=== PATIENT | male | born 1980 | race African-American/Black ===

== ENCOUNTER 2022-01-14 22:06 | Emergency (ER) | payer OTHER, SELFPAY ==
--- OUTSIDE RECORDS SUMMARY | 2022-01-14 22:09 | XMS REPORT | Continuity of Care Document ---
:1980 Author Organization [facility] t Address [address] [place] [address] Care Team Providers Name Role Phone Guerrero Attending Clinician Unavailable Problems This patient has no known problems. Allergies, Adverse Reactions, Alerts This patient has no known allergies or adverse reactions. Medications This patient has no known medications. Procedures This patient has no known procedures. Encounters Start End Encounter Admission Attending Care Care Encounter Source Date/Time Date/Time Type Type Clinicians Facility Department ID 2021-08-27 Outpatient Guerrero, STLMLC [facility] [id number] Common 13:20:57 [place]nee [id number] [facility] 2021-08-27 Outpatient Guerrero, STLC [facility] [id number] Common 13:19:32 Avnee [id number] [facility] 2021-08-27 Outpatient Guerrero, STLC [facility] [id number] Common 13:14:49 Avnee [id number] [facility] 2021-08-27 Out[facility] Guerrero, [facility] [id number] Common 13:09:53 Avnee [id number] [facility] 2021-08-27 Outpatient Guerrero, STLC [facility] [id number] Common 13:06:50 Avnee [id number] [facility] 2021-08-27 Outpatient Guerrero, STLC [facility] [id number] Common 13:06:13 Avnee [id number] [facility] 2021-05-22 2021-05-22 Outpatient STLMLC ST[facility] [id number] Common 00:00:00 00:00:00 [facility] 2021-04-23 2021-04-23 Outpatient STLMLC STL[facility]C [id number] Common 00:00:00 00:00:00 [facility] 2021-02-24 2021-02-24 Outpatient STLMLC STLMLC [id number] Common 00:00:00 00:00:00 [facility] 2021-01-29 2021-01-29 Outpatient STLMLC STLMLC [id number] Common 00:00:00 00:00:00 [facility] 2021-01-15 2021-01-15 Outpatient STLMLC STLMLC [id number] Common 00:00:00 00:00:00 [facility] 2020-12-20 2020-12-20 Outpatient STLMLC STLMLC [id number] Common 00:00:00 00:00:00 [facility] Results This patient has no known results.
== END 2022-01-14 23:08 | disposition left against medical advice (07) ==
LOC: ER 22:06
DX: Z02.9 Encounter for administrative examinations, unspecified (principal)

== ENCOUNTER 2022-07-02 15:07 | Inpatient (IN) | payer SELFPAY ==
--- NOTE | 2022-07-02 15:37 | RAD REPORT ---
EXAM DESCRIPTION: CT - Ct Stroke Brain Wo Cont - 07/02/2022 3:30 pm CLINICAL HISTORY: Numbness/tingling Headache, drowsiness, CVA symptomology. COMPARISON: No comparisons TECHNIQUE: All CT scans are performed using dose optimization technique as appropriate and may inclu de automated exposure control or mA/KV adjustment according to patient size. FINDINGS: No intracranial hemorrhage, hydrocephalus or extra-axial fluid collection.No areas of brai n edema or evidence of midline shift. The paranasal sinuses and mastoids are clear. The calvarium is intact. IMPRESSION: No acute intracranial abnormality. If there is continued clinical concern for CVA, MR imaging of the brain would be recommended. The findings were discussed with doctor Posada in the emergency room on 07/02/2022 at 3:30 p.m. by telephone.
[2022-07-02] MEDS ORDERED: ASPIRIN 81 MG CHEWABLE TABLET ONE (15:47)
[2022-07-02] MEDS ORDERED: FOLIC ACID 5 MG/ML VIAL ONE (15:48)
[2022-07-02] MEDS ORDERED: NA CHLORIDE 0.9% 1,000 ML ONE (15:49)
[2022-07-02] MEDS ORDERED: TENECTEPLASE 50 MG/10 ML VIAL IV ONE (15:58)
--- NOTE | 2022-07-02 16:00 | RAD REPORT ---
EXAM DESCRIPTION: RAD - Chest Single View - 07/02/2022 3:50 pm CLINICAL HISTORY: CHEST PAIN Chest pain. COMPARISON: No comparisons FINDINGS: Portable technique limits examination quality. There is a vague small opacity in the left lung base which may represent infiltrate/pneumonia. The ri ght lung is clear. The heart is normal in size. No displaced fractures. IMPRESSION: Small opacity in the left lung base likely represents developing pneumonia.
[2022-07-02 16:02] LABS: Hematocrit 40.6 % (39.6-49.0); Lymphocytes % 19.4 % (15.3-44.8); MCV 92.2 fL (80-100); MPV 8.1 fL (7.6-11.3)
--- OUTSIDE RECORDS SUMMARY | 2022-07-02 16:04 | XMS REPORT | Continuity of Care Document ---
:1980 Author Organization [facility] t Address [address] [place] [address] Care Team Providers Name Role Phone PCP, PATIENT DOES NOT HAVE A Primary Care Physician UnavailFabiola Navarro Attending Clinician Unavailable WILLIAM GARCIA Attending Clinician Unavailable William Hernandes Attending Clinician Payers Payer Name Policy Type Policy Number Effective Date Expiration Date Diamond ellsworth [employer] [id number] 2022 00:00:00 [employer] C1 [id number] 2019 [facility] 00:00:00 - [facility] Problems Condition Condition Condition Status Onset Resolution Last Treating Co mments Source Name Details Category Date Date Treatment Clinician Date [id number] Epigastric Problem Active Com mon pain [facility] Anxiety Anxiety Problem Active [facility] [id number] Sterilizat Problem Active Co mmon ion [facility] education [facility] [id number] Gastroesop Problem Active Co mmon [facility] reflux - [facility] disease [facility] esophagiti [facility] [place] Esophageal Esophageal Problem Active C ommon reflux reflux [facility] [id number] S/P Problem Active Common vasectomy [facility] Allergies, Adverse Reactions, Alerts Allergy Allergy Status Severity Reaction(s) Onset Inactive Treating Comm ents Source Name Type Date Date Clinician NO KNOWN Drug Active Univers ALLERGIE Class ity of S [facility] Social History Social Habit Start Date Stop Date Quantity Comments Source History of Tobacco [facility] Use [facility] Sex Assigned At [facility] Exposure to 2022-01-04 2022-01-14 Not sure [facility] SARS-CoV-2 (event) 00:00:00 23:18:00 [facility] [place] [facility] Smoking Status Start Date Stop Date Source Unknown if ever smoked [facility] Never Smoker [facility] Medications Ordered Filled Start Stop Current Ordering Indication Dosage Frequency Signature Comments Components Source Medication Medication Date Date Medication? Clinician (SIG) Name Name ondansetron No 4mg 4 mg, Slow Univers (ZOFRAN 01-15 IV Push, ity of (PF)) 06:00: 04:53 ONCE, 1 [place] injection 4 00 :00 dose, On Medi rosi mg [facility] 01/15/22 at 0100, MILENA morpHINE (4 No 4mg 4 mg, Slow Univers mg/mL) 01-15 IV Push, ity of injection 4 06:00: 04:54 [place] :[place] dose, On Medical [place] [facility] 01/15/22 at 0100, STAT ketorolac 2021- No 30mg 30 mg, Unive rs (TORADOL) 01-15 Slow IV ity of injection 06:00: 04:54 Push, [place] 30 mg 00 :00 ONCE, 1 Medical dose, On Branch [facility] 01/15/22 at 0100, MILENA HYDROcodone 2021- No 4647 1{tbl} Take 1 U nivers -acetaminop 01-15 tablet by it y of hen 10-325 00:00: 04:59 mouth [place] mg tablet 00 :00 every 6 Medical (six) Branch hours as needed for Pain (scale 7-10) for up to 7 days. Indication s: acute pain Acetaminoph Acetaminoph 2020- No 1{table QID Acetaminop en-Codeine en-Codeine 02-24 0729 t_as_ne hen-Codein #3 300-30 #3 300-30 00:00: 00:00 eded} e #3 MG MG 00 :00 300-30 MG Omeprazole Omeprazole 0 No QD Omeprazole 20 MG 20 MG 6-17 20 MG 00:00: 00 Omeprazole Omeprazole 2020-0 No QD Omeprazole 20 MG 20 MG 6-17 20 MG 00:00: 00 Omeprazole Omeprazole 2020-0 No QD Omeprazole 20 MG 20 MG 6-17 20 MG 00:00: 00 Omeprazole Omeprazole 2020-0 No QD Omeprazole 20 MG 20 MG 6-17 20 MG 00:00: 00 Omeprazole Omeprazole 2020-0 No QD Omeprazole 20 MG 20 MG 6-17 20 MG 00:00: 00 Vital Signs Vital Name Observation Time Observation Value Comments Source Systolic blood 2022-01-15 06:27:00 135 mm[Hg] Univer sity of [facility] Diastolic blood 2022-01-15 06:27:00 93 mm[Hg] Unive [facility] Heart rate 2022-01-15 06:27:00 68 /min [facility] Respiratory rate 2022-01-15 06:27:00 16 /min [facility] Oxygen saturation in 2022-01-15 06:27:00 99 /min [facility] Arterial blood by [facility] Pulse oximetry [place] Body temperature 2022-01-15 04:22:00 36.56 [place] [facility] Body height 2022-01-15 04:22:00 180.3 cm [facility] Body weight 2022-01-15 04:22:00 97.523 kg [facility] BMI 2022-01-15 04:22:00 29.99 kg/m2 [facility] height 2021-02-24 14:30:00 72 [in_i] [facility] weight 2021-02-24 14:30:00 216 [lb_av] [facility] temperature 2021-02-24 14:30:00 98.3 [degF] [facility] bmi 2021-02-24 14:30:00 29.29 kg/m2 [facility] - [facility] oximetry 2021-02-24 14:30:00 98 % Common S [facility] - [facility] blood pressure 2021-02-24 14:30:00 139 mm[Hg] [facility] - systolic [facility] blood pressure 2021-02-24 14:30:00 89 mm[Hg] [facility] - diastolic [facility] height 2021-01-29 11:30:00 72 [in_i] Common S pirit - [facility] weight 2021-01-29 11:30:00 216.2 [lb_av] Common [facility] temperature 2021-01-29 11:30:00 98.7 [degF] [facility] bmi 2021-01-29 11:30:00 29.32 kg/m2 [facility] oximetry 2021-01-29 11:30:00 99 % Common S pirit [facility] blood pressure 2021-01-29 11:30:00 142 mm[Hg] Common [facility] - systolic [facility] blood pressure 2021-01-29 11:30:00 85 mm[Hg] Common [facility] - diastolic [facility] height 2021-01-15 16:00:00 72 [in_i] [facility] weight 2021-01-15 16:00:00 214.4 [lb_av] Common [facility] temperature 2021-01-15 16:00:00 97.3 [degF] Common S pirit [facility] bmi 2021-01-15 16:00:00 29.07 kg/m2 [facility] 2021-01-15 16:00:00 97 % [facility] respiratory rate 2021-01-15 16:00:00 16 /min Comm on [facility] blood pressure 2021-01-15 16:00:00 139 mm[Hg] [facility] - systolic [facility] blood pressure 2021-01-15 16:00:00 76 mm[Hg] Common [facility] - diastolic [facility] height 2020-12-20 11:00:00 72 [in_i] Common pirit - [facility] weight 2020-12-20 11:00:00 211.6 [lb_av] [facility] temperature 2020-12-20 11:00:00 97.2 [degF] Common S pirit - [facility] bmi 2020-12-20 11:00:00 28.69 kg/m2 Common S pirit [facility] oximetry 2020-12-20 11:00:00 97 % [facility] respiratory rate 2020-12-20 11:00:00 16 /min Comm on [facility] blood pressure 2020-12-20 11:00:00 133 mm[Hg] Common [facility] - systolic [facility] blood pressure 2020-12-20 11:00:00 87 mm[Hg] [facility] diastolic [facility] Procedures Procedure Date / Time Performed Performing Clinician Sour e NOTICE OF PRIVACY 2022-01-15 04:20:44 [facility] CONSENT/REFUSAL FOR 2022-01-15 04:15:45 [facility], [facility] AND Name Medical Branch TREATMENT Encounters Start End Encounter Admission Attending Care Care Encounter Source Date/Time Date/Time Type Type Clinicians Facility Department ID 2022-02-25 Outpatient GuerreroJAMIE camarena [facility] [id number] Common 14:01:02 Avnee [facility] 2021-08-27 Outpatient JAMIE Guerrero [facility] [id number] Common 13:20:57 Avnee [facility] 2021-08-27 Outpatient JAMIE Guerrero [facility] [id number] Common 13:19:32 Avnee [id number] [facility] 2021-08-27 Outpatient JAMIE Guerrero [facility] [id number] Common 13:14:49 Avnee [id number] [facility] 2021-08-27 Outpatient Guerrero, STLMLC STLMLC [id number] Common 13:09:53 Avnee [id number] [facility] 2021-08-27 Outpatient Guerrero, STLMLC STLMLC [id number] Common 13:06:50 Avnee [id number] [facility] 2021-08-27 Outpatient Guerrero, STLMLC STLMLC [id number] Common 13:06:13 Avnee [id number] [facility] 2022-01-14 2022-01-15 [id number] Univers 23:18:00 01:54:00 WILLIAM herrera [facility] 2022-01-14 2022-01-15 [facility] [id number] Univers 23:18:00 01:54:00 [place] [id number] [facility] [id number] [facility] [id number] [place] [address] Branch 2021-05-22 2021-05-22 OL DIG E/M STLMLC STLMLC [id number] Common 00:00:00 00:00:00 SVC 5-10 Spiri t MIN [facility] 2021-04-23 2021-04-23 OL DIG E/M STLMLC STLMLC [id number] Common 00:00:00 00:00:00 SVC 5-10 Spiri t MIN [facility] 2021-02-24 2021-02-24 (PROC) STLMLC STLMLC [id number] Co mmon 00:00:00 00:00:00 Procedure Spir it - [facility] 2021-01-29 2021-01-29 OFFICE STLMLC STLMLC [id number] Co mmon 00:00:00 00:00:00 VISIT NEW Spir it PT LEVEL 2 - [facility] 2021-01-15 2021-01-15 PREV VISIT STLMLC STLMLC [id number] Common 00:00:00 00:00:00 EST AGE Spirit 40-64 - [facility] 2020-12-20 2020-12-20 OFFICE [facility] [id number] Co mmon 00:00:00 00:00:00 VISIT [facility] PT LEVEL 3 - [facility] Results This patient has no known results.
[2022-07-02 16:05] LABS: Protime INR 1.1
[2022-07-02 16:15] LABS: Potassium 3.6 mmol/L (3.5-5.1); Troponin High Sensitivity 4.4 pg/mL (<58.9)
--- NOTE | 2022-07-02 16:44 | EDPHYS ---
Physician Documentation [facility] Name: Lisandro Cho Age: 41 yrs Sex: Male : 1980 Arrival Date: 07/02/2022 Time: 15:13 Bed 19 Private MD: ED Physician Patel Posada HPI: 07/02 15:42 This 41 yrs old Black Male presents to ER via Ambulatory with complaints of Numbness Of carlos manuel Face, Chest Pain > 30 y/o, Dizziness. 15:42 The patient's problem is reported as paresthesias, in left side of face. Onset: The carlos manuel symptoms/episode began/occurred just prior to arrival. Duration: The episode is continuous. Context: the episode(s) was witnessed, by family, occurred at work. The symptoms are alleviated by nothing. The symptoms are aggravated by nothing. Associated signs and symptoms: The patient has no apparent associated signs or symptoms. Severity of symptoms: At their worst the symptoms were mild in the emergency department the symptoms are unchanged. Patient's baseline: Neuro: alert and fully oriented. The patient has not experienced similar symptoms in the past. Historical: - Allergies: 15:15 No Known Allergies; ld1 - Home Meds: 15:15 None [Active]; ld1 - PMHx: 15:15 None; ld1 - PSHx: 15:15 None; ld1 - Immunization history:: Adult Immunizations up to date, Client reports having NOT received the Covid vaccine. - Social history:: Smoking status: Patient denies any tobacco usage or history of. Patient/guardian denies using alcohol. - Family history:: not pertinent. ROS: 15:42 Constitutional: Negative for fever, chills, and weight loss, Eyes: Negative for injury, carlos manuel pain, redness, and discharge, ENT: Negative for injury, pain, and discharge, Neck: Negative for injury, pain, and swelling, Cardiovascular: Negative for chest pain, palpitations, and edema, Respiratory: Negative for shortness of breath, cough, wheezing, and pleuritic chest pain, Abdomen/GI: Negative for abdominal pain, nausea, vomiting, diarrhea, and constipation, Back: Negative for injury and pain, : Negative for injury, bleeding, discharge, and swelling, MS/Extremity: Negative for injury and deformity, Skin: Negative for injury, rash, and discoloration, Psych: Negative for depression, anxiety, suicide ideation, homicidal ideation, and hallucinations, Allergy/Immunology: Negative for hives, rash, and allergies, Endocrine: Negative for neck swelling, polydipsia, polyuria, polyphagia, and marked weight changes, Hematologic/Lymphatic: Negative for swollen nodes, abnormal bleeding, and unusual bruising. 15:42 Neuro: Positive for numbness, of the forehead, left ear, left cheek, left sabianist and left jaw. Exam: 15:42 Radiologist reports: NEGATIVE carlos manuel 15:42 Constitutional: This is a well developed, well nourished patient who is awake, alert, and in no acute distress. Eyes: Pupils equal round and reactive to light, extra-ocular motions intact. Lids and lashes normal. Conjunctiva and sclera are non-icteric and not injected. Cornea within normal limits. Periorbital areas with no swelling, redness, or edema. ENT: Nares patent. No nasal discharge, no septal abnormalities noted. Tympanic membranes are normal and external auditory canals are clear. Oropharynx with no redness, swelling, or masses, exudates, or evidence of obstruction, uvula midline. Mucous membranes moist. Neck: Trachea midline, no thyromegaly or masses palpated, and no cervical lymphadenopathy. Supple, full range of motion without nuchal rigidity, or vertebral point tenderness. No Meningismus. Chest/axilla: Normal chest wall appearance and motion. Nontender with no deformity. No lesions are appreciated. Cardiovascular: Regular rate and rhythm with a normal S1 and S2. No gallops, murmurs, or rubs. Normal PMI, no JVD. No pulse deficits. Respiratory: Lungs have equal breath sounds bilaterally, clear to auscultation and percussion. No rales, rhonchi or wheezes noted. No increased work of breathing, no retractions or nasal flaring. Abdomen/GI: Soft, non-tender, with normal bowel sounds. No distension or tympany. No guarding or rebound. No evidence of tenderness throughout. Back: No spinal tenderness. No costovertebral tenderness. Full range of motion. Male : Normal genitalia with no discharge or lesions. Skin: Warm, dry with normal turgor. Normal color with no rashes, no lesions, and no evidence of cellulitis. MS/ Extremity: Pulses equal, no cyanosis. Neurovascular intact. Full, normal range of motion. Neuro: Awake and alert, GCS 15, oriented to person, place, time, and situation. Cranial nerves II-XII grossly intact. Motor strength 5/5 in all extremities. Sensory grossly intact. Cerebellar exam normal. Normal gait. Psych: Awake, alert, with orientation to person, place and time. Behavior, mood, and affect are within normal limits. 15:42 Head/face: Noted is LEFT FACIAL NUMBNESS, UPPER AND LOWER. 15:42 ECG was reviewed by the Attending Physician. Vital Signs: 15:14 BP 139 / 94; Pulse 86; Resp 18; Temp 98.3(TE); Pulse Ox 100% on R/A; Weight 76.2 kg; ld1 Height 5 ft. 12 in. (182.88 cm); Pain 5/10; 15:49 Weight 77.8 kg (M); iw 16:05 BP 144 / 96; Pulse 76; Resp 18; Pulse Ox 100% on R/A; ll1 16:20 BP 141 / 87; Pulse 70; Resp 19; Pulse Ox 100% ; ll1 16:45 BP 131 / 90; Pulse 65; Resp 18; Pulse Ox 100% ; ll1 17:47 BP 152 / 96; Pulse 65; Resp 18; Pulse Ox 100% ; ll1 18:41 BP 151 / 100; Pulse 81; Resp 17; Pulse Ox 100% ; ll1 19:35 BP 122 / 80; Pulse 78; Resp 18 S; Pulse Ox 100% on R/A; ha1 15:49 Body Mass Index 23.26 (77.80 kg, 182.88 cm) iw NIH Stroke Scale Scores: 17:10 NIHSS Score: 1 carlos manuel MDM: 15:26 Patient medically screened. carlos manuel 15:49 Differential diagnosis: CVA, paralysis. Data reviewed: vital signs, nurses notes, lab carlos manuel test result(s), EKG, radiologic studies, CT scan, MRI, plain films. Data interpreted: quality assurance monitor: rate is 86 beats/min, rhythm is regular, Pulse oximetry: on room air is 100 %. Test interpretation: by ED physician or midlevel provider: ECG, plain radiologic studies. Counseling: I had a detailed discussion with the patient and/or guardian regarding: the historical points, exam findings, and any diagnostic results supporting the discharge/admit diagnosis, lab results, radiology results. 07/02 15:25 Order name: Basic Metabolic Panel; Complete Time: 16:38 [facility] 07/02 15:25 Order name: CBC with Diff; Complete Time: 16:38 [facility] 07/02 15:25 Order name: High Sensitivity Troponin; Complete Time: 16:38 [facility] 07/02 15:25 Order name: Protime (+inr); Complete Time: 16:38 [facility] 07/02 15:25 Order name: Ptt, Activated; Complete Time: 16:38 [facility] 07/02 15:51 Order name: Lipid Profile; Complete Time: 19:58 [facility] 07/02 15:51 Order name: SARS RAPID; Complete Time: 17:45 [facility] 07/02 16:07 Order name: Glucose, Ancillary Testing; Complete Time: 16:38 [facility] 07/02 16:38 Order name: Sed Rate; Complete Time: 17:45 [facility] 07/02 16:38 Order name: CRP; Complete Time: 19:58 [facility] 07/02 17:46 Order name: Blood Culture Adult (2) [facility] 07/02 20:11 Order name: CBC with Automated Diff [facility] 07/02 20:11 Order name: Comprehensive Metabolic Panel [facility] 07/02 20:11 Order name: Magnesium [facility] 07/02 15:25 Order name: CT Stroke Brain w/o Contrast; Complete Time: 16:38 [facility] 07/02 15:25 Order name: Stroke CXR 1 View; Complete Time: 16:38 [facility] 07/02 15:40 Order name: CT Head Angio; Complete Time: 19:58 [facility] 07/02 15:40 Order name: CT Neck Angio; Complete Time: 19:58 [facility] 07/02 16:03 Order name: Brain Wo Cont; Complete Time: 17:45 [facility] 07/02 20:11 Order name: Phosphorus [facility] 07/02 20:11 Order name: Creatine Phosphokinase [facility] 07/02 20:11 Order name: Creatine Phosphokinase [facility] 07/02 20:11 Order name: Creatine Phosphokinase [facility] 07/03 15:34 Order name: CT [facility] 07/02 15:25 Order name: EKG; Complete Time: 15:26 [facility] 07/02 15:25 Order name: Accucheck; Complete Time: 16:18 [facility] 07/02 15:25 Order name: Cardiac monitoring; Complete Time: 15:44 [facility] 07/02 15:25 Order name: EKG - Nurse/Tech; Complete Time: 15:44 em 07/02 15:25 Order name: IV Saline Lock; Complete Time: 15:43 em 07/02 15:25 Order name: Labs collected and sent; Complete Time: 15:43 em1 07/02 15:25 Order name: NPO; Complete Time: 15:36 em 07/02 15:25 Order name: O2 Per Protocol; Complete Time: 15:36 [facility] 07/02 15:25 Order name: O2 Sat Monitoring; Complete Time: 15:36 em 07/02 15:25 Order name: Stroke Swallow Screen; Complete Time: 15:52 [facility] 07/02 20:11 Order name: CONS Physician Consult [facility] 07/02 20:11 Order name: Heart Healthy [facility] 07/02 20:11 Order name: EKG Electrocardiogram EDMS EC:42 Rate is 74 beats/min. Rhythm is regular. QRS [place] is Normal. MS interval is normal. QRS carlos manuel interval is normal. QT interval is normal. No Q waves. T waves are Normal. No ST changes noted. Clinical impression: Normal ECG and No evidence of ischemia. Reviewed by me. Administered Medications: 15:52 Drug: NS 0.9% 1000 ml Route: IV; Rate: 1 bolus; Site: left forearm; [facility] 18:40 Follow up: Response: No adverse reaction; IV Status: Completed infusion; IV Intake: ll1 1000ml 15:52 Drug: foLIC Acid 1 mg Route: IVPB; Site: left forearm; [facility] 16:21 Follow up: Response: No adverse reaction; IV Status: Completed infusion; IV Intake: ll1 0.2ml 15:52 Drug: Aspirin Chewable Tablet 324 mg Route: PO; 1 16:21 Follow up: Response: No adverse reaction [facility] 16:08 Drug: TNK FOR STROKE - Tenecteplase 0.25 mg/kg {Co-Signature: [facility] (Fanny lorenzo RN).} Route: IV; Rate: per protocol; Site: left antecubital; 18:39 Follow up: Response: No adverse reaction; IV Status: Completed infusion; IV Intake: 4ml [facility] 18:35 Drug: Rocephin (cefTRIAXone) 1 grams Route: IV; Rate: per protocol; Site: right ll1 antecubital; 18:35 Drug: Zithromax (azithromycin) 500 mg Route: PO; ll1 Disposition Summary: 07/02/22 16:43 Hospitalization Ordered Hospitalization Status: Observation carlos manuel Provider: Gil Gaston cha Condition: Stable carlos manuel Problem: new carlos manuel Symptoms: have improved carlos manuel Bed/Room Type: Standard carlos manuel Location: [facility] ER HOLD(07/03/22 16:01) dw Room Assignment: (07/03/22 16:01) dw Diagnosis - Chest pain, unspecified carlos manuel - Cerebral infarction, unspecified - LEFT FACIAL NUMBNESS, SP TNK carlos manuel - Pneumonia due to other specified bacteria carlos manuel Forms: - Medication Reconciliation Form carlos manuel - SBAR form carlos manuel Critical care time excluding procedures: 17:11 Critical care time: Bedside Care: 25 minutes, Consultation: 10 minutes, Family carlos manuel Intervention: 10 minutes. Total time: 45 minutes NIH Stroke Scale - NIH Stroke Score Date: 07/02/2022 Time: 17:10 Total Score = 1 1a. Level of Consciousness (LOC) - 0(Alert) 1b. Level of Consciousness (LOC) (Month \T\ Age) - 0(Both) 1c. 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 Best Gaze (Lateral Gaze Paresis) - 0(Normal) 3. Visual Field Loss - 0(No visual loss) 4. Facial Palsy - 0(Normal) 5a. Left Arm: Motor (10-second hold) - 0(No drift) 5b. Right Arm: Motor (10-second hold) - 0(No drift) 6a. Left Leg: Motor (5-second hold - always test supine) - 0(No drift) 6b. Right Leg: Motor (5-second hold - always test supine) - 0(No drift) 7. Limb Ataxia (finger/nose \T\ heel/spear - test with eyes open) - 0(Absent) 8. Sensory Loss (pinprick arms/legs/face) - 1(Mild to moderate loss) 9. Best Language: Aphasia (description/naming/reading) - 0(No aphasia) 10. Dysarthria (speech clarity - read or repeat words) - 0(Normal) 11. Extinction and Inattention (visual/tactile/auditory/spatial/personal) - 0(No abnormality) Initials: carlos manuel Signatures: Dispatcher [employer] Samantha Vargas, RN RN Patel Henderson MD MD cha Williams, Irene, RN RN iw Jani, Edgardo em1 Fanny Hernandez RN RN ll1 Yamil Sanchez DO DO ms3 Mattie Kimble, RN RN ld1 Fanny Hernandez RN ll1 Corrections: (The following items were deleted from the chart) 16:03 15:40 MR STROKE PROTOCOL+MRI.RAD.BRZ ordered. EDMS EDMS 19:11 16:43 Telemetry/MedSurg (observation) carlos manuel dw 19:11 16:43 carlos manuel dw 07/03 15:58 12 19:11 BR ER HOLD dw dw 07/03 15:58 12 19:11 ERHOLD- dw dw 07/03 16:01 15:58 Telemetry/MedSurg (observation) dw dw 16:01 15:58 405 dw dw
--- NOTE | 2022-07-02 16:44 | ER ---
Nurse's Notes [facility] Name: Lisandro Cho Age: 41 yrs Sex: Male : 1980 Arrival Date: 07/02/2022 Time: 15:13 Bed 19 Private MD: Diagnosis: Chest pain, unspecified;Cerebral infarction, unspecified-LEFT FACIAL NUMBNESS, SP TNK;Pneumonia due to other specified bacteria Presentation: 07/02 15:14 Chief complaint: Patient states: 1320 today pt began feeling lightheaded, cough/cold, ld1 chest pain, dizziness, then numbness/tingling of left side of face. Coronavirus screen: At this time, the client does not indicate any symptoms associated with coronavirus-19. Ebola Screen: No symptoms or risks identified at this time. Initial Sepsis Screen: Does the patient meet any 2 criteria? No. Patient's initial sepsis screen is negative. Does the patient have a suspected source of infection? No. Patient's initial sepsis screen is negative. Risk Assessment: Do you want to hurt yourself or someone else? Patient reports no desire to harm self or others. Onset of symptoms was July 02, 2022. 15:14 Method Of Arrival: Ambulatory ld1 15:14 Acuity: TYLER 3 ld1 Triage Assessment: 15:15 General: Appears in no apparent distress. comfortable, Behavior is calm, cooperative, ld1 appropriate for age. Pain: Complains of pain in chest Pain does not radiate. Pain currently is 5 out of 10 on a pain scale. at worst was 10 out of 10 on a pain scale. Quality of pain is described as sharp, shooting, throbbing, Pain began suddenly, Is intermittent. EENT: No signs and/or symptoms were reported regarding the EENT system. Neuro: Level of Consciousness is awake, alert, obeys commands, Oriented to person, place, time, situation. Cardiovascular: Capillary refill < 3 seconds Patient's skin is warm and dry. Cardiovascular: Rhythm is regular. Respiratory: Airway is patent Respiratory effort is even, unlabored. GI: Abdomen is flat, non-distended. : No signs and/or symptoms were reported regarding the genitourinary system. Derm: No signs and/or symptoms reported regarding the dermatologic system. Musculoskeletal: No signs and/or symptoms reported regarding the musculoskeletal system. Historical: - Allergies: 15:15 No Known Allergies; ld1 - Home Meds: 15:15 None [Active]; ld1 - PMHx: 15:15 None; ld1 - PSHx: 15:15 None; ld1 - Immunization history:: Adult Immunizations up to date, Client reports having NOT received the Covid vaccine. - Social history:: Smoking status: Patient denies any tobacco usage or history of. Patient/guardian denies using alcohol. - Family history:: not pertinent. Screenin:46 Abuse screen: Denies threats or abuse. Nutritional screening: No deficits noted. ll1 Tuberculosis screening: No symptoms or risk factors identified. Fall Risk IV access (20 points). Total Issa Fall Scale indicates No Risk (0-24 pts). Assessment: 16:15 Reassessment: No changes from previously documented assessment. Patient and/or family ll1 updated on plan of care and expected duration. Pain level reassessed. 16:45 Reassessment: No changes from previously documented assessment. Patient and/or family ll1 updated on plan of care and expected duration. Pain level reassessed. to MRI and CT via wheelchair. 17:37 Reassessment: No changes from previously documented assessment. Patient and/or family ll1 updated on plan of care and expected duration. Pain level reassessed. Patient is alert, oriented x 3, equal unlabored respirations, skin warm/dry/pink. 18:35 Reassessment: No changes from previously documented assessment. Patient and/or family ll1 updated on plan of care and expected duration. Pain level reassessed. Patient is alert, oriented x 3, equal unlabored respirations, skin warm/dry/pink. 19:35 General: Appears comfortable, Behavior is calm, cooperative. Pain: Denies pain. Neuro: ha1 Level of Consciousness is awake, alert, obeys commands, Oriented to person, place, time, situation. Cardiovascular: Capillary refill < 3 seconds Patient's skin is warm and dry. Respiratory: Airway is patent Trachea midline Respiratory effort is even, unlabored, Breath sounds are clear bilaterally. Respiratory: Reports cough that is productive. GI: No signs and/or symptoms were reported involving the gastrointestinal system. : No signs and/or symptoms were reported regarding the genitourinary system. EENT: No deficits noted. No signs and/or symptoms were reported regarding the EENT system. Derm: Skin is normal. Musculoskeletal: Circulation, motion, and sensation intact. Range of motion: intact in all extremities. Vital Signs: 15:14 BP 139 / 94; Pulse 86; Resp 18; Temp 98.3(TE); Pulse Ox 100% on R/A; Weight 76.2 kg; ld1 Height 5 ft. 12 in. (182.88 cm); Pain 5/10; 15:49 Weight 77.8 kg (M); iw 16:05 BP 144 / 96; Pulse 76; Resp 18; Pulse Ox 100% on R/A; ll1 16:20 BP 141 / 87; Pulse 70; Resp 19; Pulse Ox 100% ; ll1 16:45 BP 131 / 90; Pulse 65; Resp 18; Pulse Ox 100% ; ll1 17:47 BP 152 / 96; Pulse 65; Resp 18; Pulse Ox 100% ; ll1 18:41 BP 151 / 100; Pulse 81; Resp 17; Pulse Ox 100% ; ll1 19:35 BP 122 / 80; Pulse 78; Resp 18 S; Pulse Ox 100% on R/A; ha1 15:49 Body Mass Index 23.26 (77.80 kg, 182.88 cm) iw NIH Stroke Scale Scores: 17:10 NIHSS Score: 1 carlos manuel ED Course: 15:13 Patient arrived in ED. ld1 15:15 Triage completed. ld1 15:15 Arm band placed on right wrist. ld1 15:15 Inserted saline lock: 20 gauge in left antecubital area, using aseptic technique. Blood ll1 collected. 15:26 Patel Posada MD is Attending Physician. carlos manuel 15:31 CT Stroke Brain w/o Contrast In Process Unspecified. EDMS 15:36 Fanny Hernandez, RN is Primary Nurse. ll1 15:52 Stroke CXR 1 View In Process Unspecified. EDMS 16:39 Gil Gaston is Hospitalizing Provider. carlos manuel 16:46 Patient maintains SpO2 saturation greater than 95% on room air. ll1 16:57 Brain Wo Cont In Process Unspecified. EDMS 17:37 Inserted saline lock: 22 gauge in right antecubital area, using aseptic technique. ll1 Blood collected. 17:47 CT Head Angio In Process Unspecified. EDMS 17:53 CT Neck Angio In Process Unspecified. EDMS 18:40 No provider procedures requiring assistance completed. Patient admitted, IV remains in ll1 place. 18:41 Patient has correct armband on for positive identification. Bed in low position. Call ll1 light in reach. Side rails up X2. Client placed on continuous cardiac and pulse oximetry monitoring. NIBP monitoring applied. 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 18:57 Blood Culture Adult (2) Sent. ll1 Administered Medications: 15:52 Drug: NS 0.9% 1000 ml Route: IV; Rate: 1 bolus; Site: left forearm; ll1 18:40 Follow up: Response: No adverse reaction; IV Status: Completed infusion; IV Intake: ll1 1000ml 15:52 Drug: foLIC Acid 1 mg Route: IVPB; Site: left forearm; ll1 16:21 Follow up: Response: No adverse reaction; IV Status: Completed infusion; IV Intake: ll1 0.2ml 15:52 Drug: Aspirin Chewable Tablet 324 mg Route: PO; ll1 16:21 Follow up: Response: No adverse reaction ll1 16:08 Drug: TNK FOR STROKE - Tenecteplase 0.25 mg/kg {Co-Signature: 1 (Fanny lorenzo RN).} Route: IV; Rate: per protocol; Site: left antecubital; 18:39 Follow up: Response: No adverse reaction; IV Status: Completed infusion; IV Intake: 4ml ll1 18:35 Drug: Rocephin (cefTRIAXone) 1 grams Route: IV; Rate: per protocol; Site: right ll1 antecubital; 18:35 Drug: Zithromax (azithromycin) 500 mg Route: PO; ll1 Medication: 18:41 VIS not applicable for this client. ll1 Intake: 16:21 IV: 0ml; Total: 0ml. ll1 18:39 IV: 4ml; Total: 4ml. ll1 18:40 IV: 1000ml; Total: 1004ml. ll1 Outcome: 16:43 Decision to Hospitalize by Provider. [facility] 07/03 13:48 Admitted to ER Hold. Please see [facility] for further documentation. [facility] Condition: stable 18:47 Patient left the ED. [id number] NIH Stroke Scale - NIH Stroke Score Date: 07/02/2022 Time: 17:10 Total Score = 1 1a. Level of Consciousness (LOC) - 0(Alert) 1b. Level of Consciousness (LOC) (Month \T\ Age) - 0(Both) 1c. LOC Commands (Open \T\ Closes Eyes/Pilling Machine Operator) - 0(Both) 2. Best Gaze (Lateral Gaze Paresis) - 0(Normal) 3. Visual Field Loss - 0(No visual loss) 4. Facial Palsy - 0(Normal) 5a. Left Arm: Motor (10-second hold) - 0(No drift) 5b. Right Arm: Motor (10-second hold) - 0(No drift) 6a. Left Leg: Motor (5-second hold - always test supine) - 0(No drift) 6b. Right Leg: Motor (5-second hold - always test supine) - 0(No drift) 7. Limb Ataxia (finger/nose \T\ heel/spear - test with eyes open) - 0(Absent) 8. Sensory Loss (pinprick arms/legs/face) - 1(Mild to moderate loss) 9. Best Language: Aphasia (description/naming/reading) - 0(No aphasia) 10. Dysarthria (speech clarity - read or repeat words) - 0(Normal) 11. Extinction and Inattention (visual/tactile/auditory/spatial/personal) - 0(No abnormality) Initials: carlos manuel Signatures: Dispatcher [employer] EDMS Patel Posada MD MD cha Williams, Irene RN GRUPO Roya Ovalle RN RN jl7 Fanny Hernandez RN RN ll1 Mattie Kimble RN RN ld1 Virginia Tobar RN RN 1 Fanny Hernandez RN ll1 Corrections: (The following items were deleted from the chart) 07/02 16:47 16:46 Inserted saline lock: 20 gauge in left antecubital area, using aseptic ll1 technique. Blood collected. ll1
[2022-07-02 16:59] LABS: SARS-CoV-2 Antigen Rapid Res Negative (Negative)
--- NOTE | 2022-07-02 17:36 | RAD REPORT ---
EXAM DESCRIPTION: MRI - Brain Wo Cont - 07/02/2022 5:10 pm CLINICAL HISTORY: CVA Headache, drowsiness, CVA symptomology COMPARISON: Ct Stroke Brain Wo Cont dated 07/02/2022 TECHNIQUE: Multi-sequence, multiplanar MR imaging of the brain was performed without contrast. FINDINGS: No intracranial hemorrhage, hydrocephalus or extra-axial fluid collections. No edema or sh ift of midline structures. No findings to suspect brain mass. DWI is negative for acute CVA. Midline structures are normally formed. Mastoid air cells and paranasal sinuses are clear. IMPRESSION: Negative for acute CVA or other acute intracranial process.
--- NOTE | 2022-07-02 18:05 | RAD REPORT ---
EXAM DESCRIPTION: CT - Head angio - 07/02/2022 5:45 pm CLINICAL HISTORY: Neuro deficit, acute, stroke suspected Headache, drowsiness, CVA symptomology COMPARISON: Ct Stroke Brain Wo Cont dated 07/02/2022; Neck Angio dated 07/02/2022 TECHNIQUE: CT angiography of the head was performed with MIPs. All CT scans are performed using dose optimization technique as appropriate and may include automated exposure control or mA/KV adjustment according to patient size. FINDINGS: No large vessel occlusion seen. No evidence of aneurysm is detected. No flow-limiting sten osis or vascular malformation identified. Antegrade flow is seen in the vertebral arteries. The vertebral arteries are codominant. The visualized dural venous sinuses are patent. IMPRESSION: No significant flow abnormality is detected.
--- NOTE | 2022-07-02 18:08 | RAD REPORT ---
EXAM DESCRIPTION: CT - Neck Angio - 07/02/2022 5:51 pm CLINICAL HISTORY: Neuro deficit, acute, stroke suspected Headache, drowsiness, CVA symptomology. COMPARISON: No comparisons TECHNIQUE: CT angiography of the neck vessels was performed with MIPs. All CT scans are performed using dose optimization technique as appropriate and may include automated exposure control or mA/KV adjustment according to patient size. FINDINGS: A left aortic arch is identified with normal three vessel configuration of the great vesse ls. No significant flow abnormality is seen of the common carotid bilaterally. No significant stenosis is identified involving the cervical segments of both internal carotid arteri es. Right vertebral artery is mildly dominant. IMPRESSION: No significant flow abnormality of the neck vessels is identified.
[2022-07-02] MEDS ORDERED: CEFTRIAXONE 1000 MG/VIAL ONE ×2 (18:28→23:25)
[2022-07-02] MEDS ORDERED: AZITHROMYCIN 250 MG TAB ONE (18:28)
[2022-07-02] MEDS ORDERED: NA CHLORIDE 0.9% 50 ML IV ONE (18:29)
[2022-07-02] MEDS ORDERED: Levofloxacin500mg IV 500 MG/100 ML BAG IV SCH (20:00)
[2022-07-02] MEDS ORDERED: ACETAMINOPHEN 500 MG TAB PO PRN (20:00)
[2022-07-02] MEDS ORDERED: Levofloxacin500mg IV 0 MG/0 ML BAG IV ONE (21:09)
--- NOTE | 2022-07-02 22:06 | P.HP ---
Certification for Inpatient Patient admitted to: Observation With expected LOS: <2 Midnights Patient will require the following post-hospital care: None Practitioner: I am a practitioner with admitting privileges, knowledge of patient current condition, hospital course, and medical plan of care. Services: Services provided to patient in accordance with Admission requirements found in Title 42 Section 412.3 of the Code of Federal Regulations Patient History Date of Service: 07/02/22 Primary Care Provider: None Reason for admission: TIA given TNK, Pneumonia History of Present Illness: Mr. Cho is a 41 yo male without medical history or medications. He does not have a PCP. Pt arrived to ED with some focal neuro deficit of left face. He was evaluated and CVA could not be ruled out and was thus given TNK. Mr. Cho lives at home with his Spouse and eight children. The family has recently had RSV. Upon pt workup in the ED, he was found to have pneumonia. He will be admitted to ICU for 23 hour obs 2nd to TNK administration and given IV abx for pneumonia Allergies No Known Allergies Allergy (Unverified 07/02/22 20:25) Home medications list reviewed: Yes Home Medications: NK [No Home Meds] 07/02/22 - Past Medical/Surgical History Has patient received pneumonia vaccine in the past: No Diabetic: No Past Medical History: Patient denies medical history Past Surgical History: Patient denies surgical history - Family History Family History: Reviewed- Non-Contributory - Social History Smoking Status: Never smoker Smoking therapy provided: No Patient receptive to therapy: No Alcohol use: No CD- Drugs: No Caffeine use: Yes Place of Residence: Home (with and Eight children) Review of Systems General: Unremarkable Eyes: Unremarkable ENT: Other (resolved left facial numbness) Respiratory: Cough, Pleuritic Pain Cardiovascular: Unremarkable Gastrointestinal: Unremarkable Genitourinary: Unremarkable Musculoskeletal: Unremarkable Integumentary: Unremarkable Neurological: Numbness (resolved) Physical Examination - Vital Signs Temperature: 98 F Blood Pressure: 119/84 Pulse: 90 Respirations: 20 Pulse Ox (%): 100 - Physical Exam General: Alert, Oriented x3 HEENT: Atraumatic, Normocephalic Neck: Supple Respiratory: Clear to auscultation bilaterally, Normal air movement, Other (left chest pain on inspiration) Cardiovascular: No edema, Normal pulses Capillary refill: <2 Seconds Gastrointestinal: Normal bowel sounds Musculoskeletal: No clubbing, No swelling Integumentary: No rashes, No breakdown Neurological: Normal speech, Normal strength at 5/5 x4 extr, Normal tone Lymphatics: No axilla or inguinal lymphadenopathy External genitalia: Deferred Rectal: Deferred - Studies Laboratory Data (last 24 hrs) 07/02/22 15:47: Triglycerides 58, Cholesterol 156, HDL Cholesterol 51, Cholesterol/HDL Ratio 3.06 07/02/22 15:47: PT 12.1, INR 1.10, APTT 33.5 07/02/22 15:47: WBC 10.30, Hgb 13.5 L, Hct 40.6, Plt Count 298 07/02/22 15:47: Sodium 136, Potassium 3.6, BUN 9, Creatinine 0.93, Glucose 104 Assessment and Plan - Problems (Diagnosis) (1) Pneumonia Current Visit: Yes Status: Acute Plan: Tussionex for painful inspiration/cough, IV abx Levaquin and Rocephin. (2) TIA (transient ischemic attack) Current Visit: Yes Status: Acute Plan: Neuro checks every 4 hours, observe for untoward side effects of TNK, consult Dr. Britton Discharge Plan: Home Plan to discharge in: 24 Hours - Advance Directives Does patient have a Living Will: No Does patient have a Durable POA for Healthcare: No - Code Status/Comfort Care Code Status Assessed: Yes (full) Code Status: Full Code Time Spent Managing Pts Care (In Minutes): 45
[2022-07-02 22:21] VITALS: O2SAT 100
[2022-07-02] MEDS ORDERED: HYDROCODONE/CHLORPHEN 5 ML/OSYR ONE (22:29)
[2022-07-02] MEDS: HYDROCODONE/CHLORPHEN 5 ML/OSYR PO PRN (22:29)
[2022-07-02] MEDS ORDERED: CEFTRIAXONE 1,000 MG in NA CHLORIDE 0.9% 50 ML IVPB SCH (23:00)
[2022-07-02] MEDS ORDERED: NA CHLORIDE 0.9% 100 ML IV ONE (23:25)
[2022-07-02 23:31] VITALS: BMI 23.1
[2022-07-03] MEDS: HYDROCODONE/CHLORPHEN 5 ML/OSYR PO PRN (05:25)
[2022-07-03] MEDS ORDERED: HYDROCODONE/CHLORPHEN 5 ML/OSYR ONE (05:25)
[2022-07-03 05:42] LABS: Absolute Lymphocytes (CBC) 2.3 K/uL (0.7-4.9); Hematocrit 38.3 % (39.6-49.0); Lymphocytes % 26.7 % (15.3-44.8); MCV 92.5 fL (80-100); MPV 8.3 fL (7.6-11.3); RBC Red Blood Cell Count 4.14 M/uL (4.33-5.43)
[2022-07-03 05:59] LABS: Albumin 2.7 g/dL (3.4-5.0); Bilirubin Total 0.3 mg/dL (0.2-1.0); Magnesium 2.1 mg/dL (1.8-2.4); Potassium 4.7 mmol/L (3.5-5.1); Protein, Total 6.6 g/dL (6.4-8.2)
--- NOTE | 2022-07-03 07:51 | EKG ---
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
[2022-07-03] MEDS ORDERED: Levofloxacin 750mg IV 750 MG/150 ML BAG IV SCH (09:00)
[2022-07-03] MEDS ORDERED: Levofloxacin500mg IV 500 MG/100 ML BAG IV SCH (09:00)
[2022-07-03] MEDS ORDERED: Levofloxacin 750mg IV 750 MG/150 ML BAG IV ONE (09:45)
[2022-07-03 13:18] VITALS: TEMP 98.4
--- NOTE | 2022-07-03 15:33 | RAD REPORT ---
EXAM DESCRIPTION: CT - Head Brain Wo Cont - 07/03/2022 3:26 pm CLINICAL HISTORY: Follow up CT for TnKase Headache, drowsiness, CVA symptomology COMPARISON: Head angio dated 07/02/2022; Ct Stroke Brain Wo Cont dated 07/02/2022; Brain Wo Cont dated 07/02/2022 TECHNIQUE: All CT scans are performed using dose optimization technique as appropriate and may inclu de automated exposure control or mA/KV adjustment according to patient size. FINDINGS: No intracranial hemorrhage, hydrocephalus or extra-axial fluid collection.No areas of brai n edema or evidence of midline shift. The paranasal sinuses and mastoids are clear. The calvarium is intact. IMPRESSION: No acute intracranial abnormality.
--- NOTE | 2022-07-03 16:56 | P.DS ---
Admission Date: 07/03/22 Discharge Date: 07/03/22 Primary Care Provider: None Disposition: ROUTINE DISCHARGE Discharge Condition: FAIR Reason for Admission: TIA given TNK, Pneumonia - Problems (1) TIA (transient ischemic attack) Current Visit: Yes Status: Acute (2) Pneumonia Current Visit: Yes Status: Acute Brief History of Present Illness: Mr. Cho is a 41 yo male without any known medical history or on any medications. Pt presented to ED with complaint of left facial weakness and deviation. Stroke protocol was initiated in the ED, he was evaluated and was given TNK. Mr. Cho lives at home with his Spouse and eight children. The family has recently had RSV. Upon pt workup in the ED, he was found to have pneumonia. Patient's started on IV antibiotics and admitted for further management. Hospital Course: Patient admitted to the medical floor. His left facial weakness and deviation resolved. He had no trouble swallowing, speech was normal. MRI of the brain done did not show acute CVA. Repeat CT head 24 hours later shows no acute disease no infarct or hemorrhage. Patient was ambulatory, no problem with gait. He was treated with IV Levaquin for pneumonia. He was not hypoxic. Patient clinically improved and deemed stable for discharge. He is prescribed aspirin, Lipitor, folic acid for possible TIA. Also prescribed Levaquin to continue treatment for pneumonia. Vital Signs/Physical Exam: Temp Pulse Resp BP Pulse Ox 98.4 F 79 14 116/81 100 07/03/22 12:00 07/03/22 13:00 07/03/22 13:00 07/03/22 13:00 07/03/22 13:00 General: Alert, In no apparent distress, Oriented x3 HEENT: Mucous membr. moist/pink Neck: Supple, JVD not distended Respiratory: Clear to auscultation bilaterally, Normal air movement Cardiovascular: No edema, Regular rate/rhythm, Normal S1 S2 Gastrointestinal: Soft and benign, Non-distended, No tenderness Musculoskeletal: No swelling Integumentary: No rashes, No cyanosis Neurological: Normal speech, Normal strength at 5/5 x4 extr, Cranial nerves 3-12 intact Laboratory Data at Discharge: WBC 8.50 K/uL (4.3-10.9) 07/03/22 05:18 Hgb 12.7 g/dL (13.6-17.9) L 07/03/22 05:18 Hct 38.3 % (39.6-49.0) L 07/03/22 05:18 Plt Count 298 K/uL (152-406) 07/03/22 05:18 PT 12.1 SECONDS (9.5-12.5) 07/02/22 15:47 INR 1.10 07/02/22 15:47 APTT 33.5 SECONDS (24.3-36.9) 07/02/22 15:47 Sodium 139 mmol/L (136-145) 07/03/22 05:18 Potassium 4.7 mmol/L (3.5-5.1) D 07/03/22 05:18 BUN 10 mg/dL (7-18) 07/03/22 05:18 Creatinine 0.99 mg/dL (0.55-1.3) 07/03/22 05:18 Glucose 100 mg/dL (74-106) 07/03/22 05:18 Phosphorus 4.0 mg/dL (2.5-4.9) 07/03/22 05:18 Magnesium 2.1 mg/dL (1.8-2.4) 07/03/22 05:18 Total Bilirubin 0.3 mg/dL (0.2-1.0) 07/03/22 05:18 AST 25 U/L (15-37) 07/03/22 05:18 ALT 29 U/L (12-78) 07/03/22 05:18 Alkaline Phosphatase 84 U/L (45-117) 07/03/22 05:18 Triglycerides 58 mg/dL (<150) 07/02/22 15:47 Cholesterol 156 mg/dL (<200) 07/02/22 15:47 HDL Cholesterol 51 mg/dL (40-60) 07/02/22 15:47 Cholesterol/HDL Ratio 3.06 07/02/22 15:47 Home Medications: Aspirin [Aspirin EC 81 MG] 81 mg PO DAILY #30 tab 07/03/22 Atorvastatin Calcium [Lipitor] 40 mg PO BEDTIME #30 tab 07/03/22 Folic Acid 1 mg PO DAILY #30 tab 07/03/22 levoFLOXacin [Levaquin] 750 mg PO DAILY #7 tab 07/03/22 New Medications: Aspirin [Aspirin EC 81 MG] 81 mg PO DAILY #30 tab Folic Acid 1 mg PO DAILY #30 tab levoFLOXacin [Levaquin] 750 mg PO DAILY #7 tab Atorvastatin Calcium [Lipitor] 40 mg PO BEDTIME #30 tab Diet: AHA Activity: Ad ruba Followup: Wade Britton MD [ASSOCIATE-ACTIVE - CAN ADMIT] - (within 2 weeks.) NONE,NONE [Primary Care Provider] - 1-2 Weeks Time spent managing pt's care (in minutes): 33
[2022-07-03] MEDS ORDERED: AZITHROMYCIN IV 500 MG in NA CHLORIDE 0.9% 250 ML IVPB SCH (18:00)
[2022-07-03 18:46] VITALS: BP 124/90
--- NOTE | 2022-07-03 18:54 | CON ---
Reason For Consultation: Consultation called because of stroke status post TNK and pneumonia. History Of Present Illness: Mr. 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 The patient developed sudden left facial numbness. Symptom onset was at 1:20. He came to [facility] at 3:13. His NIH Stroke Scale was reported to be around 1. Head CT scan was done at 3:30. This study showed no acute ischemic or hemorrhagic findings. I spoke with Dr. Posada, emergency room physician and once the patient was cleared for any contraindications for TNK, he did receive TNK. He reports he began to have improveme nt in his left facial numbness and within several hours he felt he was back to normal. He never had weakness in his face, arm, or leg. No loss of speech. No dysarthria. No loss of bladder or bowel f unction. His additional workup included negative CT angiogram of the head and neck. No large vessel disease identified. His laboratory work showed slightly elevated ESR of 32. Hemoglobin and hematoc rit 12.7 and 38.3, white blood cell count 8.5, and platelets 298. INR 1.1. His chemistries and live r function studies are all normal. C-reactive protein was elevated to 83.9. His total cholesterol 1 56, LDL cholesterol 93, HDL 51, and creatine kinase 274. COVID test was negative. Electrocardiogram showed normal sinus rhythm, normal study and his chest x-ray identified small opacity in the left rachid ng base likely representing developing pneumonia. It should be noted that his ESR and CRP were eleva stacey, which is likely consistent with pneumonia. His white blood cell count was normal, suggesting no systemic evidence of anything like sepsis and he was without fever. Past Medical History: As noted, no significant past medical history. Allergies: NONE. Medications: None. Past Surgical History: None. Family History: He has 2 brothers, both of his age, both have had strokes. He said they both smoke cigarettes. Social History: The patient denies alcohol, tobacco, or IV drug use. Denies vaping. Review of Systems: Aside from the left facial numbness, denies any weakness, any fevers, chills, nausea, vomiting, myalg ias, arthralgias, rash, headache, or weight change. No psychiatric problems. No dermatological issu es. No gastrointestinal or genitourinary issues. Physical Examination: Vital Signs: Blood pressure 116/81, pulse 79, respiratory rate 14, temperature 98.4, and oxygen satu ration 100% on room air. Weight 171 pounds, height 6 feet, BMI 23.2. General: Mr. Cho is sitting in his bed in the emergency room, which is ICU of the emergency [facility]. HEENT: He is normocephalic, atraumatic. Sclerae anicteric. Oropharynx is pink and moist. Neck: Supple. Chest: Clear. Heart: Regular. Extremities: No clubbing, cyanosis, or edema. Neurologic: He is alert and oriented to person, place, time, and situation. No expressive or recept beata aphasias. Cranial nerves 2 through 12 are intact. Full visual fang. Sensation intact. Face is symmetric. Tongue and palate are midline. Motor 5/5 strength proximally and distally in the uppe r and lower extremities. Sensation intact in upper and lower extremities. Reflexes 2+ in upper and lower extremities. Coordination intact in upper and lower extremities. Gait with no ataxia and narr ow based with good arm swing. Assessment: Mr. Cho is a 41-year-old patient with family history of stroke. No risk factors garcia ch as diabetes, hypertension, or dyslipidemia; however, he did appear to have a pneumonia and has ree vated ESR and CRP. It is possible that may have been a contributing factor. He did have TNK with re solution of his left facial numbness. Plan: 1.At this point, continue aspirin 81 mg daily and folic acid 1 mg daily. Continue with antibiotics. He did receive Rocephin 1 g every 24 hours. He received Tussionex as well and Tylenol as needed. He was not given aspirin yet as he has had TNK and he will be given in 24 hours. 2.Once his head CT scan is negative, he may be discharged home to follow up in Dr. Britton's office within 1 month. VIJI/MOLLY Voice ID: [id number] Report ID: [id number]
== END 2022-07-03 18:00 | disposition home or self-care (01) | DRG 61 ==
LOC: ER 15:07 → ERHOLD 20:19 → OBSVTOIN 07-03 10:19 → ERHOLD 07-03 14:15
PROVIDERS: ADMIT Internal Medicine; ATTEND Internal Medicine
DX: G45.9 Transient cerebral ischemic attack, unspecified (principal); J18.9 Pneumonia, unspecified organism; R29.810 Facial weakness; R20.0 Anesthesia of skin; R42 Dizziness and giddiness; R07.9 Chest pain, unspecified; R29.701 NIHSS score 1; R20.2 Paresthesia of skin; Z79.82 Long term (current) use of aspirin; Z79.899 Other long term (current) drug therapy; Z28.310 Unvaccinated for COVID-19; Z20.822 Contact with and (suspected) exposure to COVID-19
CPT/HCPCS: 36415; 70450; 70496; 70498; 70551; 71045; 80048; 80053; 80061; 82550; 82947; 83735; 84100; 84484; 85025; 85610; 85652; 85730; 86140; 87040; 87811; 92977; 93005; 99291; G0378; J3101; J7030; Q0144; Q9967

== ENCOUNTER 2024-05-30 12:03 | Emergency (ER) | payer SELFPAY ==
[2024-05-30] MEDS ORDERED: ONDANSETRON 4 MG (ODT) TAB ONE (12:37)
[2024-05-30 13:04] LABS: SARS-CoV-2 Antigen CONTROL BLUE LINE VIS/BG OK; SARS-CoV-2 Antigen Rapid Res Negative (Negative)
--- NOTE | 2024-05-30 15:04 | ER ---
Nurse's Notes [facility] Name: Lisandro Cho Age: 43 yrs Sex: Male : 1980 Arrival Date: 05/30/2024 Time: 12:03 Bed 11 Private MD: Diagnosis: Influenza due to identified novel influenza A virus Presentation: 05/30 12:11 Chief complaint: Patient states: cough, SOB, stuffy nose, fever, chills, started iw Wednesday. Coronavirus screen: Client presents with at least one sign or symptom that may indicate coronavirus-19. Ebola Screen: No symptoms or risks identified at this time. Initial Sepsis Screen: Does the patient meet any 2 criteria? HR > 90 bpm. Does the patient have a suspected source of infection?. Risk Assessment: Do you want to hurt yourself or someone else? Patient reports no desire to harm self or others. Onset of symptoms was May 26, 2024. 12:11 Method Of Arrival: Ambulatory iw 12:11 Acuity: TYLER 4 iw Historical: - Allergies: 12:12 No Known Allergies; iw - Home Meds: 12:12 None [Active]; iw - PMHx: 12:12 None; iw - PSHx: 12:12 None; iw - Immunization history:: Adult Immunizations not up to date. - Infectious Disease History:: Denies. - Social history:: Smoking status: Patient denies any tobacco usage or history of. - Family history:: not pertinent. Screenin:15 [facility] ED Fall Risk Assessment (Adult) History of falling in the last 3 months, iw including since admission No falls in past 3 months (0 pts) Confusion or Disorientation No (0 pts) Intoxicated or Sedated No (0 pts) Impaired Gait No (0 pts) Mobility Assist Device Used No (0 pt) Altered Elimination No (0 pt) Score/Fall Risk Level 0 - 2 = Low Risk. Abuse screen: Denies threats or abuse. Nutritional screening: No deficits noted. Tuberculosis screening: No symptoms or risk factors identified. Assessment: 12:14 General: Appears in no apparent distress. Behavior is calm, cooperative. General: iw Reports fever for 2-3 days, feeling ill for fatigue for. Pain: Complains of pain in head. Neuro: Level of Consciousness is awake, alert, obeys commands, Oriented to person, place, time, situation, Moves all extremities. Full function Gait is. Cardiovascular: Patient's skin is warm and dry. Respiratory: Reports cough that is Respiratory effort is even, unlabored, Respiratory pattern is regular, symmetrical. GI: Abdomen is non-distended. Derm: Skin is intact, is healthy with good turgor. Musculoskeletal: Range of motion: intact in all extremities. 15:10 Reassessment: Patient appears in no apparent distress at this time. Patient and/or db family updated on plan of care and expected duration. Pain level reassessed. Patient is alert, oriented x 3, equal unlabored respirations, skin warm/dry/pink. Vital Signs: 12:11 BP 147 / 94; Pulse 98; Resp 18; Temp 100; Pulse Ox 97% ; Weight 81.65 kg; Height 5 ft. iw 11 in. ; Pain 7/10; 15:08 BP 142 / 95; Pulse 96; Resp 18; Temp 99.1; Pulse Ox 98% on R/A; db 12:11 Body Mass Index 25.10 (81.65 kg, 180.34 cm) iw 12:11 Pain Scale: Adult iw ED Course: 12:06 Patient arrived in ED. mr 12:06 Victorino Nagel MD is Attending Physician. rt 12:12 Triage completed. iw 12:12 Arm band placed on. iw 12:14 Cynthia Mitchell, RN is Primary Nurse. iw 12:15 No provider procedures requiring assistance completed. iw 14:08 Chest Single View XRAY In Process Unspecified. EDMS 15:08 Patient has correct armband on for positive identification. Bed in low position. Call db light in reach. Side rails up X 1. Provided Education on: FLU, DISCHARGE AND FOLLOWUP. Pulse ox on. NIBP on. Warm blanket given. 15:10 Patient did not have IV access during this emergency room visit. db Administered Medications: 12:45 Drug: Ondansetron Oral Disintegrating Tablet Oral Disintegrating Tablet 4 mg PO once ss Route: PO; 15:00 Follow up: Response: No adverse reaction db Medication: 12:15 VIS not applicable for this client. iw Outcome: 15:03 Discharge ordered by MD. rt 15:10 Discharged to home ambulatory, with family, db 15:10 Condition: stable 15:10 Discharge instructions given to patient, family, Instructed on discharge instructions, follow up and referral plans. 15:10 Patient left the ED. db Signatures: Dispatcher [employer] EDMS UmeshMana, Reg Reg mr Cynthia Mitchell, RN GRUPO iw Katie Yeboah RN RN ss Kaitlynn Cummings RN RN Victorino Owens MD MD rt
--- NOTE | 2024-05-30 15:04 | EDPHYS ---
Physician Documentation [facility] Name: Lisandro Cho Age: 43 yrs Sex: Male : 1980 Arrival Date: 05/30/2024 Time: 12:03 Bed 11 Private MD: ED Physician Victorino Nagel HPI: 05/30 12:51 This 43 yrs old Black Male presents to ER via Ambulatory with complaints of Flu rt Symptoms. 12:51 Patient presents to the ED with cough, congestion, shortness of breath, nausea and rt chills for the past 4 days. Has positive contacts with the flu. Denies other acute complaints at this time, symptoms are moderate in severity, no other aggravating or alleviating factors.. Historical: - Allergies: 12:12 No Known Allergies; iw - Home Meds: 12:12 None [Active]; iw - PMHx: 12:12 None; iw - PSHx: 12:12 None; iw - Immunization history:: Adult Immunizations not up to date. - Infectious Disease History:: Denies. - Social history:: Smoking status: Patient denies any tobacco usage or history of. - Family history:: not pertinent. ROS: 12:51 Constitutional: Negative for fever, chills, and weight loss, Back: Negative for injury rt and pain, MS/Extremity: Negative for injury and deformity, Skin: Negative for injury, rash, and discoloration, 12:51 ENT: Positive for rhinorrhea, 12:51 Respiratory: Positive for cough, shortness of breath, 12:51 Abdomen/GI: Positive for nausea, Negative for abdominal pain, Exam: 12:51 Constitutional: This is a well developed, well nourished patient who is awake, alert, rt and in no acute distress. Head/Face: Normocephalic, atraumatic. Chest/axilla: Normal chest wall appearance and motion. Nontender with no deformity. No lesions are appreciated. Cardiovascular: Regular rate and rhythm with a normal S1 and S2. No gallops, murmurs, or rubs. Normal PMI, no JVD. No pulse deficits. Respiratory: Lungs have equal breath sounds bilaterally, clear to auscultation and percussion. No rales, rhonchi or wheezes noted. No increased work of breathing, no retractions or nasal flaring. Abdomen/GI: Soft, non-tender, with normal bowel sounds. No distension or tympany. No guarding or rebound. No evidence of tenderness throughout. Skin: Warm, dry with normal turgor. Normal color with no rashes, no lesions, and no evidence of cellulitis. MS/ Extremity: Pulses equal, no cyanosis. Neurovascular intact. Full, normal range of motion. Neuro: Awake and alert, GCS 15, oriented to person, place, time, and situation. Cranial nerves II-XII grossly intact. Motor strength 5/5 in all extremities. Sensory grossly intact. Cerebellar exam normal. Normal gait. Vital Signs: 12:11 BP 147 / 94; Pulse 98; Resp 18; Temp 100; Pulse Ox 97% ; Weight 81.65 kg; Height 5 ft. iw 11 in. ; Pain 7/10; 15:08 BP 142 / 95; Pulse 96; Resp 18; Temp 99.1; Pulse Ox 98% on R/A; db 12:11 Body Mass Index 25.10 (81.65 kg, 180.34 cm) iw 12:11 Pain Scale: Adult iw MDM: 12:18 Medical Screening Exam initiated rt 15:07 Differential Diagnosis Influenza, COVID, pneumonia. rt 15:07 Data reviewed: vital signs, nurses notes, lab test result(s). Independent rt interpretation of the following test(s) in the Emergency Department X-Ray: My interpretation is No consolidation seen on my interpretation of x-ray images. Test considered but Not performed: Other Details Stable vital signs, likely viral etiology, EKG, labs not indicated. Counseling: I had a detailed discussion with the patient and/or guardian regarding the historical points, exam findings, and any diagnostic results supporting the discharge/admit diagnosis, lab results, radiology results, the need for outpatient follow up. 05/30 12:17 Order name: Flu; Complete Time: 13: iw 05/30 12:17 Order name: SARS RAPID; Complete Time: 13: iw 05/30 12:27 Order name: Chest Single View XRAY rt Administered Medications: 12:45 Drug: Ondansetron Oral Disintegrating Tablet Oral Disintegrating Tablet 4 mg PO once ss Route: PO; 15:00 Follow up: Response: No adverse reaction db Disposition Summary: 05/30/24 15:03 Discharge Ordered Notes: Location: Home rt Problem: new rt Symptoms: have improved rt Condition: Stable rt Diagnosis - Influenza due to identified novel influenza A virus rt Followup: rt - With: Private Physician - When: 2 - 3 days - Reason: Discharge Instructions: - Discharge Summary Sheet rt - Influenza, Adult, [id number] rt Forms: - Medication Reconciliation Form rt - Antibiotic Education rt - Prescription Opioid Use rt - Patient Portal Instructions rt - Leadership Thank You Letter rt Signatures: Dispatcher [employer] Cynthia Pollack, RN GRUPO iw Katie Yeboah RN RN ss Victorino Nagel MD MD rt Kaitlynn Cummings RN db
[2024-05-30 15:16] VITALS: BP 142/95; TEMP 99.1; O2SAT 98
--- NOTE | 2024-05-30 15:31 | RAD REPORT ---
EXAMINATION: ONE VIEW CHEST XR CLINICAL INDICATION: Male, 43 years old.,DYSPNEA TECHNIQUE: Frontal chest projection is submitted. Examination is limited by patient positioning and t echnique. COMPARISON: 07/02/2022 FINDINGS: The lungs are well inflated. New patchy right basilar airspace opacification. No pneumothorax or siz able effusion. The heart is normal in size. Mediastinal contours are unremarkable. IMPRESSION: New patchy right basilar airspace opacification, concerning for early pneumonia.
== END 2024-05-30 15:10 | disposition home or self-care (01) ==
LOC: ER 12:03
DX: J10.1 Influenza due to other identified influenza virus with other respiratory manifestations (principal); Z11.52 Encounter for screening for COVID-19
CPT/HCPCS: 36415; 71045; 87804; 87811; Q0162